=== PATIENT | female | born 1950 | race Caucasian/White ===

== ENCOUNTER 2016-11-14 16:05 | Emergency (ER) | payer BC, MEDICARE ==
[~2016-11-14 16:05] MED LIST: ALEVE220 MG PO; AMB5 PO; APRES10B PO; ASABAYER PO; B COMPLEX-C OR; CARDCD120 PO; CARDCD360 PO; CARDIZEM LA120 MG PO; CARDIZEM LA180 MG PO; CAT1 PO; CYMBALTA30 PO; DUONEB INH; ESTRADIOL1 MG PO; KLOR-CON M2020 MEQ PO; L40 PO; LIOR10 PO; LOP25 PO; LORT7 PO; LORTAB 5 PO; METHOC750B PO; MICARDIS20 MG PO; MULTIVITAMI1 PO; NORCO1 TA2 PO; PR25 PO; PROAIR HFA INH; PROTONIX PO; PROTONIX20 MG PO; RESTORIL30 MG PO; SYN.05 PO; TAZTIA X3 PO; TRIAMCINOLONE454 GM TOP; VENTOLIN HFA INH; VITAMIN C1000 MG PO; VITAMIN D1000 UNI1; VITAMIN D1000 UNI1 PO; ZANTAC 150 PO; ZINC GLUCON50 MG PO
[2016-11-14 16:31] LABS: BASOPHILS 0.4 %; BASOPHILS ABSOLUTE 0.05 10/3/uL (0.0-0.16); EOSINOPHILS 1.5 %; EOSINOPHILS ABSOLUTE 0.19 10/3/uL (0.0-0.53); ER CBC TAT 0 Hrs 07 Mins; HEMATOCRIT 36.3 % (36.0-48.0); HEMOGLOBIN 12.1 g/dL (12.0-16.0); IMMATURE GRANULOCYTES 0.4 %; IMMATURE GRANULOCYTES ABSOLUTE 0.05 10/3/uL (0.0-0.11); LYMPHOCYTES 28.3 %; LYMPHOCYTES ABSOLUTE 3.53 10/3/uL (0.67-4.30); MEAN CORPUS HGB CONC 33.3 g/dL (32.0-36.0); MEAN CORPUSCULAR HEMOGLOB 29.9 pg (26.0-34.0); MEAN CORPUSCULAR VOLUME 89.6 fL (80-100); MONOCYTES 4.8 %; NEUTROPHILS 64.6 %; NEUTROPHILS ABSOLUTE 8.06 10/3/uL (2.02-8.40); PLATELET COUNT 233 10/3/uL (150-400); RBC DISTRIBUTION WIDTH 13.9 % (12.0-16.0); RED CELL COUNT 4.05 10/6/uL (4.0-5.6); WHITE BLOOD CELLS 12.5 10/3/uL (4.5-10.5)
[2016-11-14 16:41] LABS: ASCORBIC ACID (UR NOT ORDER) 40 (NEG); BILIRUBIN, URINE NEGATIVE (NEG); KETONE, URINE NEGATIVE (NEG); LEUKOCYTE ESTERASE(NOT OR TRACE (NEG); NITRITE (URINE) NEG (NEG); WBC (NOT ORDERED) (RFLEX) 7 (0-5)
[2016-11-14 16:45] LABS: ALBUMIN 3.5 G/DL (3.5-5.0); BUN (BLOOD UREA NITROGEN) 15 MG/DL (6-23); CALCIUM, SERUM 8.4 MG/DL (8.5-10.4); CHLORIDE, SERUM 110 MMOL/L (96-112); CO2 (CARBON DIOXIDE) 27 MMOL/L (24-34); CREATININE 1.06 MG/DL (0.55-1.02); GFR AFRICAN AMERICAN 64 ML/MIN (>=60); GFR NON AFRICAN AMERICAN 55 ML/MIN (>=60); GLOBULIN 3.4 G/DL (2.5-4.1); POTASSIUM, SERUM 3.8 MMOL/L (3.5-5.3); SGOT(AST) 35 U/L (5-40); SGPT(ALT) 57 U/L (5-65); SODIUM, SERUM 146 MMOL/L (135-148); TOTAL BILIRUBIN 0.3 MG/DL (0-1.2); TOTAL PROTEIN 6.9 G/DL (6.0-8.5)
[2016-11-14 16:47] LABS: ALKALINE PHOSPHATASE 70 U/L (45-117); GLUCOSE, SERUM 141 MG/DL (60-99)
[2016-11-24] MEDS ORDERED: COZAAR100 MG PO (18:19)
[2016-11-24] MEDS ORDERED: PCET PO (18:22)
[2016-11-24] MEDS ORDERED: ZOFRAN4 PO (18:41)
== END 2016-11-14 21:42 | disposition home or self-care (01) ==
LOC: ER 16:05
PROVIDERS: Emergency Medicine
DX: N20.1 Calculus of ureter (principal); I10 Essential (primary) hypertension; Z87.442 Personal history of urinary calculi; Z88.1 Allergy status to other antibiotic agents; Z79.899 Other long term (current) drug therapy; Z79.82 Long term (current) use of aspirin
CPT/HCPCS: 74176; 80053; 81001; 83690; 85025; 96374; 96375; 99284; J1170; J2405; J2550

== ENCOUNTER 2016-11-18 12:39 | Day surgery (SDC) | payer BC ==
--- NOTE | ~2016-11-18 | OP ---
Record Of Operation [facility] [address] [place]. [address] NAME: ELAINE MAN : 52 STATUS : [facility]#: [id number] AGE: 66 ADM/REG DATE : 11/18/16 MR#: [id number] REPORT SERV DATE: 11/19/16 DICTATED BY: Erna DOWNS DATE: 11/18/16 REPORT STATUS : Draft TRANSCRIBED BY: MODL DATE: 11/18/16 DATE OF PROCEDURE: 11/18/2016 PREOPERATIVE DIAGNOSIS: Right proximal ureteral stone. POSTOPERATIVE DIAGNOSIS: Right proximal ureteral stone. PROCEDURE: Cystoscopy, right retrograde pyelography, ureteral dilation, rigid ureteroscopy, stone manipulation, double-J stent placement. SURGEON: Erna Downs M.D. ANESTHESIA: General endotracheal. COMPLICATIONS: Difficult ureteral access. DRAINS: 7-Guamanian x 22 cm Contour double-J stent. BRIEF HISTORY: Ms. Man is a 66-year-old white female seen by me for the first time in several years today with a history of a 5 mm stone at L4-5 on the right. KUB did not show an obvious stone, and it was noted that she was in pain, and there was a question of infection. She was also having nausea and some vomiting. We decided to proceed with urgent stent placement, possible ureteroscopy, and stone extraction if reasonable. The risks of bleeding, infection, anesthesia, injury to adjacent organs, inability to access stone, and need for stent placement alone, should access proved difficult or retraction obvious, then there were no unanswered questions. DESCRIPTION OF PROCEDURE: Under excellent general anesthesia, the patient was prepped and draped in a standard lithotomy position. Cystoscopy was performed with a 30-degree lens, revealed a normal bladder without tumor, stones, or foreign bodies. An 8-Guamanian cone-tipped catheter was used to perform right retrograde pyelogram and showed obstructing filling defect in the right proximal ureter consistent with stone. Still, I am not sure if this is radiopaque or radiolucent. I inserted an angled glidewire through a 5-Guamanian open-ended catheter, passed the stone without difficulty. I then advance the ureteral catheter, obtained a specimen of urine from the kidney and it was not grossly purulent so, I thought ureteroscopy would be safe. I inserted a short rigid ureteroscope alongside the wire, but could not bypass the distal aspect of the intramural ureter. I then used a 9/11 ureteral access sheath, first dilated the ureter with the inner cannula, but was still unable to pass the scope. I then dilated it with the entire cannula. It was quite tight and still I could not advance the scope above the iliac vessels. There was some blood present, and I felt that in this setting, further manipulation was unwise. I therefore left the collecting system deliberately opacified and recently placed a 7 x 24 cm Contour double-J stent. It appeared too long and it actually got tangled, and was removed inadvertently. So, I opted to place a 7-Guamanian x 22 cm Contour double-J stent which coiled nicely in the renal pelvis and bladder. I plan to discharge Ms. Man as an outpatient with the following instructions. Record Of Operation [facility] [address] [facility] [place]. [address] NAME: ELAINE MAN : 52 STATUS : [facility]#: [id number] AGE: 66 ADM/REG DATE : 11/18/16 MR#: [id number] REPORT SERV DATE: 11/19/16 DICTATED BY: Erna DOWNS DATE: 11/18/16 REPORT STATUS : Draft TRANSCRIBED BY: JOHN DATE: 11/18/16 DISCHARGE INSTRUCTIONS: 1. Home today. 2. Pyridium 200 mg one p.o. t.i.d. p.r.n. bladder pain, #15. 3. Percocet 5/325 one to two p.o. q.4 hours p.r.n. pain, #25. 4. Follow up in my office any day next week with a KUB and we will plan further therapy if high lithotripsy is feasible that would be reasonable if the stone can be seen. Otherwise, we will consider endoscopic management at least 10 days or so down the road, so her ureter has time to dilate. JANNET/JOHN Erna Downs M.D. / [id number] CC: Erna Downs M.D. Helder Gregorio M.D.
[2016-11-18 13:54] LABS: BASOPHILS 0.4 %; BASOPHILS ABSOLUTE 0.04 10/3/uL (0.0-0.16); EOSINOPHILS 0.9 %; EOSINOPHILS ABSOLUTE 0.09 10/3/uL (0.0-0.53); HEMATOCRIT 37.4 % (36.0-48.0); HEMOGLOBIN 12.3 g/dL (12.0-16.0); IMMATURE GRANULOCYTES 0.3 %; IMMATURE GRANULOCYTES ABSOLUTE 0.03 10/3/uL (0.0-0.11); LYMPHOCYTES 26.6 %; LYMPHOCYTES ABSOLUTE 2.64 10/3/uL (0.67-4.30); MANUAL DIFF NO %; MEAN CORPUS HGB CONC 32.9 g/dL (32.0-36.0); MEAN CORPUSCULAR HEMOGLOB 29.5 pg (26.0-34.0); MEAN CORPUSCULAR VOLUME 89.7 fL (80-100); MEAN PLATELET VOLUME 10.4 fL (9.2-13.0); MONOCYTES 5.7 %; MONOCYTES ABSOLUTE 0.56 10/3/uL (0.21-1.20); NEUTROPHILS 66.1 %; NEUTROPHILS ABSOLUTE 6.55 10/3/uL (2.02-8.40); PLATELET COUNT 230 10/3/uL (150-400); RBC DISTRIBUTION WIDTH 13.6 % (12.0-16.0); RED CELL COUNT 4.17 10/6/uL (4.0-5.6); WHITE BLOOD CELLS 9.9 10/3/uL (4.5-10.5)
[2016-11-18 14:04] LABS: BUN (BLOOD UREA NITROGEN) 13 MG/DL (6-23); CALCIUM, SERUM 9.1 MG/DL (8.5-10.4); CHLORIDE, SERUM 105 MMOL/L (96-112); CO2 (CARBON DIOXIDE) 26 MMOL/L (24-34); CREATININE 1.26 MG/DL (0.55-1.02); GFR AFRICAN AMERICAN 52 ML/MIN (>=60); GFR NON AFRICAN AMERICAN 45 ML/MIN (>=60); POTASSIUM, SERUM 4.1 MMOL/L (3.5-5.3); SODIUM, SERUM 141 MMOL/L (135-148)
[2016-11-18 14:05] LABS: GLUCOSE, SERUM 101 MG/DL (60-99)
[2016-11-24] MEDS ORDERED: COZAAR100 MG PO (18:19)
[2016-11-24] MEDS ORDERED: PCET PO (18:22)
[2016-11-24] MEDS ORDERED: ZOFRAN4 PO (18:41)
== END 2016-11-18 20:44 | disposition home or self-care (01) ==
LOC: SDC 12:39
PROC: 0T768DZ Dilation of Right Ureter with Intraluminal Device, Via Natural or Artificial Opening Endoscopic (ICD-10-PCS; 2016-11-18)
PROC: BT1DYZZ Fluoroscopy of Right Kidney, Ureter and Bladder using Other Contrast (ICD-10-PCS; 2016-11-18)
PROC: 0TC68ZZ Extirpation of Matter from Right Ureter, Via Natural or Artificial Opening Endoscopic (ICD-10-PCS; principal; 2016-11-18 14:45)
DX: N20.1 Calculus of ureter (principal); K21.9 Gastro-esophageal reflux disease without esophagitis; K44.9 Diaphragmatic hernia without obstruction or gangrene; J45.909 Unspecified asthma, uncomplicated; Z90.710 Acquired absence of both cervix and uterus; Z79.2 Long term (current) use of antibiotics; Z79.899 Other long term (current) drug therapy; Z90.49 Acquired absence of other specified parts of digestive tract; Z98.890 Other specified postprocedural states; Z82.3 Family history of stroke; Z82.49 Family history of ischemic heart disease and other diseases of the circulatory system; Z88.1 Allergy status to other antibiotic agents
CPT/HCPCS: 74000; 74420; 80048; 85025; 93005; A9270-GY; C1758; C1769; C1894; C2617; J0330; J2250; J2405; J2710; J3010; Q9967

== ENCOUNTER 2016-11-29 11:00 | Day surgery (SDC) | payer BC ==
--- NOTE | ~2016-11-29 | OP ---
Record Of Operation [facility] [address] [place]. [address] NAME: ELAINE MAN : 52 STATUS : [facility]#: [id number] AGE: 66 ADM/REG DATE : 11/29/16 MR#: [id number] REPORT SERV DATE: 11/30/16 DICTATED BY: Erna DOWNS DATE: 11/29/16 REPORT STATUS : Draft TRANSCRIBED BY: MODL DATE: 11/29/16 DATE OF PROCEDURE: 11/29/2016 PREOPERATIVE DIAGNOSIS: History of right proximal ureteral stone with indwelling double-J stent. POSTOPERATIVE DIAGNOSIS: Persistent right mid ureteral narrowing, no evidence of intact stone. PROCEDURES: Cystoscopy, removal of right double-J stent, right ureteroscopy, placement double-J stent. SURGEON: Erna Downs M.D. ANESTHESIA: General. COMPLICATIONS: Persistent difficult ureteral access. DRAINS: 7-Pakistani x 22 cm Contour double-J stent. BRIEF HISTORY: Ms Man is a 66-year-old white female presented the first time last week with a 5-mm right proximal ureteral stone. I attempted ureteroscopy, but was unable to access her proximal ureter. I placed a stent in hopes that it would dilate her ureter and we could proceed with extraction. The risks of bleeding, infection, anesthesia, injury to adjacent organs, need for persistent stenting, treatment etc. were all discussed. There were no unanswered questions. DESCRIPTION OF PROCEDURE: Under excellent general anesthesia, the patient prepped and draped in standard lithotomy position. Cystoscopy was performed with a 30-degree lens, revealed a stent emanating from right orifice. It was removed with a flexible grasper without difficulty. I inserted a 5-Pakistani open-ended catheter into the right orifice and then through that an angled wire was inserted up into the collecting system. Along that a rigid ureteroscope was inserted. There was a dramatic amount of debris in her ureter especially blood and again in the mid ureteral area I had a difficult time accessing the scope. There was some evidence that the wire could be submucosal and there was some evidence of urethral splitting probably from her previous dilation. I removed the scope and inserted alongside the wire. I replaced the wire and then advanced the scope into the proximal ureter. I saw again a dramatic amount of debris, but no stone in fact there were small, crumbled fragments and I assumed the stone might have well been friable and crumbled in her ureter. Lack of dye, I could not see any intact stone even when I was in the collecting system. I dilutely opacified the persistently dilated system, retrofitted wire and the cystoscope placed a 7- Pakistani x 22 cm stent and coiled nicely in the renal pelvis and bladder. I feel like this should be in for a minimum of two weeks, preferably three, and plan to discharge Ms Man an an outpatient with the following instructions. DISCHARGE INSTRUCTIONS: Record Of Operation [facility] [address] [facility] [place]. [address] NAME: ELAINE MAN : 52 STATUS : [facility]#: [id number] AGE: 66 ADM/REG DATE : 11/29/16 MR#: [id number] REPORT SERV DATE: 11/30/16 DICTATED BY: Erna DOWNS DATE: 11/29/16 REPORT STATUS : Draft TRANSCRIBED BY: JOHN DATE: 11/29/16 1. Home today. 2. Percocet 5/325 one to two p.o. q.4 h. p.r.n. pain, #20. 3. Follow up in my office in three weeks or so for cysto stent removal. Followup imaging will depend upon her clinical course. JANNET/JOHN Erna Downs M.D. / [id number] CC: Helder Berry Susan Sumeet Bhushan, M.D.
[~2016-11-29 11:00] MED LIST changes: +COZAAR100 MG PO; +PCET PO; +ZOFRAN4 PO
== END 2016-11-29 18:18 | disposition home or self-care (01) ==
LOC: SDC 11:00
PROC: 0T768DZ Dilation of Right Ureter with Intraluminal Device, Via Natural or Artificial Opening Endoscopic (ICD-10-PCS; principal; 2016-11-29 12:45)
DX: N13.5 Crossing vessel and stricture of ureter without hydronephrosis (principal); K21.9 Gastro-esophageal reflux disease without esophagitis; I12.9 Hypertensive chronic kidney disease with stage 1 through stage 4 chronic kidney disease, or unspecified chronic kidney disease; N18.3 Chronic kidney disease, stage 3 (moderate); M79.7 Fibromyalgia; Z87.442 Personal history of urinary calculi; Z87.891 Personal history of nicotine dependence; Z88.1 Allergy status to other antibiotic agents; Z88.5 Allergy status to narcotic agent; Z90.49 Acquired absence of other specified parts of digestive tract; Z98.890 Other specified postprocedural states
CPT/HCPCS: 74420; A9270-GY; C1758; C1769; C2617; J2250; J2405; J2710; J3010; Q9967

== ENCOUNTER 2016-12-09 19:10 | Inpatient (IN) | payer BC, MEDICARE ==
--- NOTE | ~2016-12-09 | DS ---
Discharge Summary [facility] [address] [place]. [address] NAME: ELAINE MAN : 52 STATUS : DIS IN PAT#: [id number] AGE: 66 ADM/REG DATE : 12/09/16 MR#: [id number] REPORT SERV DATE: 12/30/16 DICTATED BY: Erna DOWNS DATE: 12/29/16 REPORT STATUS : Draft TRANSCRIBED BY: MODL DATE: 12/29/16 ADMISSION DATE: 12/09/2016 DISCHARGE DATE: 12/14/2016 ADMISSION DIAGNOSIS: Left proximal ureteral stone with acute kidney injury. DISCHARGE DIAGNOSIS: Left proximal ureteral stone with acute kidney injury with exacerbation of asthma. PROCEDURES DURING ADMISSION: 12/11/2016, cystoscopy, left retrograde ureteroscopy with double-J stent, cystolitholapaxy, removal of right double-J stent, right retrograde. CONSULTATION: Hospitalist. BRIEF HISTORY: Ms. Man is a 66-year-old white female with a history of a right ureteral stone. Underwent ureteroscopy on 11/29/2016. Presented to the emergency room with a left proximal stone and creatinine increased 1.75. She was admitted for further observation. HOSPITAL COURSE AND TREATMENT: Patient was admitted. She felt okay on 12/10/2016. No stone was seen. We continued to strain her urine, and since she did not progress, her pain was 9/10, we proceeded to the OR for the above procedure. She tolerated that well. Around 12/12/2016 was having some wheezing. She did use an inhaler at home and she was somewhat hypoxemic. Therefore, we asked the hospitalist to see her. She was continued on oxygen as well as antibiotics. She was planned to be discharged on 12/13/2016, but not all of her home had been addressed. On 12/14/2016 she was feeling better. The hospitalist felt she could be discharged with the following instructions. DISCHARGE INSTRUCTIONS: 1. Home today. 2. Follow up in my office next week for cystoscopy and stent removal. 3. 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 JANNET/JOHN Erna Downs M.D. / [id number] CC: Elana Clark M.D.
--- NOTE | ~2016-12-09 | HP ---
History And Physical [facility] [address] [place]. [address] NAME: ELAINE RICHARDSON : 52 STATUS : ADM Jade PAT#: [id number] AGE: 66 ADM/REG DATE : 12/09/16 MR#: [id number] REPORT SERV DATE: 12/10/16 DICTATED BY: Erna GONZALEZ DATE: 12/10/16 REPORT STATUS : Draft TRANSCRIBED BY: MODL DATE: 12/10/16 DATE OF ADMISSION: 12/09/2016 CHIEF COMPLAINT: Left proximal ureteral stone with intractable pain. HISTORY OF PRESENT ILLNESS: Mrs. Richardson is a 66-year-old white female, known to me with a history of recurrent stone disease, seen recently with a right proximal ureteral stone who underwent ureteroscopy on 11/18/2016, and access was difficult due to the narrowness of her right ureter. I attempted it again on 11/29/2016, but was again unsuccessful. It is my feeling that I was going to leave her stent in for several weeks and simply remove her stent since no residual stone had been seen. I was able to access her entire ureter the second time, again saw no stone. She came in today with intractable left flank pain and was found to have a 3 mm proximal stone. Her pain needed parental narcotics and her creatinine was elevated to 1.7, so it was decided to admit her. PAST MEDICAL HISTORY: Hypertension, dysrhythmias, urolithiasis, asthma, sleep apnea, degenerative disc disease, fibromyalgia, osteoporosis, and diverticulitis. PAST SURGICAL HISTORY: Hysterectomy, colon resection, fistula repair, cholecystectomy, appendectomy, pilonidal cyst removal, hemorrhoidectomy, cataract extraction, and cysto stent 11/18/2016 and 11/29/2016 with ureteroscopy. HOME MEDICATIONS: Cholecalciferol; diltiazem; fluticasone; losartan; methocarbamol; ondansetron; oxycodone; pantoprazole; phenazopyridine; ranitidine; and tramadol. ALLERGIES: ERYTHROMYCIN CAUSES HIVES. MORPHINE CAUSES HALLUCINATIONS. SOCIAL HISTORY: The patient lives at home with her family. FAMILY HISTORY: Negative for urologic disease. REVIEW OF SYSTEMS: Complete 12-point review of systems is negative except as noted above. She specifically denies fever, chills, nausea, and vomiting. PHYSICAL EXAMINATION: GENERAL: Uncomfortable 66-year-old white female. Afebrile, conversant, interactive. GENERAL: She is ambulatory. HEENT: Normocephalic, atraumatic, afebrile with normal vital signs. LUNGS: No respiratory distress. HEART: Regular rate and rhythm. ABDOMEN: Protuberant, nontender, and nondistended. No CVA tenderness. EXTREMITIES: No peripheral edema noted. PERTINENT LABORATORY: Creatinine 1.75. White count 8500. Urinalysis positive for red cells, otherwise unremarkable except for 16 white cells. History And Physical [address] [address] NAME: ELAINE RICHARDSON : 52 STATUS : ADM Jade PAT#: [id number] AGE: 66 ADM/REG DATE : 12/09/16 MR#: [id number] REPORT SERV DATE: 12/10/16 DICTATED BY: Erna GONZALEZ DATE: 12/10/16 REPORT STATUS : Draft TRANSCRIBED BY: JOHN DATE: 12/10/16 IMPRESSION: 1. Left proximal ureteral stone with intractable pain. 2. No signs of infection except for inflammatory urine. We will check a urine culture. PLAN: 1. We will check a KUB. I doubt this stone to be radiopaque. 2. We will let her eat today and strain her urine. If she is unable to pass the stone, I will consider endoscopic intervention on 12/11/2016. JANNET/JOHN Erna Gonzalez M.D. / [id number] CC: Erna Gonzalez M.D.
--- NOTE | ~2016-12-09 | OP ---
Record Of Operation [facility] [address] [place]. [address] NAME: ELAINE MAN : 52 STATUS : ADM Jade PAT#: [id number] AGE: 66 ADM/REG DATE : 12/09/16 MR#: [id number] REPORT SERV DATE: 12/12/16 DICTATED BY: Erna DOWNS DATE: 12/11/16 REPORT STATUS : Draft TRANSCRIBED BY: MODL DATE: 12/11/16 DATE OF PROCEDURE: 12/11/2016 PREOPERATIVE DIAGNOSIS: Left proximal ureteral stone with intractable pain. POSTOPERATIVE DIAGNOSIS: Left proximal ureteral stone with intractable pain. PROCEDURE: Cystoscopy, left retrograde pyelography, ureteroscopy with stone manipulation, double-J stent placement, cystolitholapaxy, removal of right double-J stent, right retrograde pyelogram. SURGEON: Erna Downs M.D. ANESTHESIA: General endotracheal. COMPLICATIONS: None. DRAINS: Left 7-Occitan x 24 cm Contour double-J stent. BRIEF HISTORY: Ms. Man is a 66-year-old white female, well known to me with a history of recurrent stone disease, who underwent a ureteroscopy on the right side recently for the stone. She had a narrow ureter and had to have a repeat ureteroscopy with stent placement which was scheduled to come out in about a week. She presented on 12/09/2016, with a small left proximal ureteral stone and was admitted for pain control. She failed to progress and we decided to proceed with intervention today. The risks of bleeding, infection, anesthesia, injury to adjacent organs, inability to access stone, and need for an additional stent on the left side were all discussed. We also discussed that if all went well on the left, we would consider removing her stent or at least exchanging it with retrograde pyelography if appropriate. There were no unanswered questions. DESCRIPTION OF PROCEDURE: Under excellent general anesthesia, the patient was prepped and draped in standard lithotomy position. Cystoscopy was performed with a 30-degree lens, revealed a stent emanating from the right orifice. It was severely encrusted especially given the fact that it had been in only for two weeks. I was able to find the left orifice and performed a left retrograde pyelogram, which showed evidence of filling defect near the proximal ureter. I inserted an angled glidewire through a 5-Occitan open-ended catheter, then along side the wire inserted a short rigid ureteroscope. There was narrowing just at the level of the UPJ, but I was able to advance the scope into the renal pelvis. I saw some tiny fragments, but no significant stone. I did attempt to retrieve these with a basket, but was unsuccessful as they were too small. I left the collecting system deliberately opacified and placed a retrofitted the wire in the cystoscope, and placed a 7-Occitan x 24 cm Contour double-J stent which coiled nicely in the renal pelvis and bladder. I then planned to at least remove the right stent that was severely encrusted and so I had to break the stone off with a grasper and remove those fragments. I remove that stent and had an 8- Occitan cone-tipped catheter was used to perform a right retrograde pyelogram. It showed no filling defect or extravasation, there was a dilated collecting system, probably due to the Record Of Operation [address] [address] NAME: ELAINE MAN : 52 STATUS : ADM Jade PAT#: [id number] AGE: 66 ADM/REG DATE : 12/09/16 MR#: [id number] REPORT SERV DATE: 12/12/16 DICTATED BY: Erna DOWNS DATE: 12/11/16 REPORT STATUS : Draft TRANSCRIBED BY: JOHN DATE: 12/11/16 stent encrustation. I was able to advance the ureteral catheter all the way into the collecting system without trouble and I felt that leaving a stent on that side was unnecessary. I plan to discharge Ms. Man from the hospital today with the following instructions. DISCHARGE INSTRUCTIONS: 1. Home today. 2. Plan cysto, left stent removal in the office in 7 to 10 days. 3. Percocet 5/325 one to two p.o. q.4 hours p.r.n. pain, #20. GIGID/CHARISSAL Erna Downs M.D. / [id number] CC: Erna Downs M.D.
--- NOTE | ~2016-12-09 | HP ---
History And Physical [facility] [place]. [address] NAME: ELAINE MAN : 52 STATUS : ADM Jade PAT#: [id number] AGE: 66 ADM/REG DATE : 12/09/16 MR#: [id number] REPORT SERV DATE: 12/12/16 DICTATED BY: REG LICONA DATE: 12/12/16 REPORT STATUS : Draft TRANSCRIBED BY: MODL DATE: 12/12/16 DATE OF ADMISSION: 12/09/2016 H and P consultation. REASON FOR CONSULTATION: Wheezing and shortness of breath. HISTORY OF PRESENT ILLNESS: This is a very pleasant 66-year-old white female, who reports that in 09/2016, she started passing blood in her urine and had a stone pass at that time. She continued to have hematuria in October and November of this year and was actually seen by Dr. Gonzalez after an ER visit here where a right double-J stent was placed. She went home, was supposed to have followup with Dr. Gonzalez for removal of that double-J stent, but returned to the emergency room on 12/09/2016 with more pain and continued hematuria. She had a left renal stone and is now status post a double-J stent to the left ureter. She has recovered from that, but has had some difficulty with wheezing. Has had a fever up to 100.8. Has had some dyspnea with exertion and has been hypoxic particularly with ambulating. Yesterday evening, she describes a sensation of chest pain particularly with deep breathing and coughing, but that has passed today, but is still continuing to wheeze. Hospitalist Service has been consulted for this respiratory distress, wheezing, fever, and hypoxemia. PAST MEDICAL HISTORY: Includes supraventricular tachycardia; hypertension; obstructive sleep apnea, on current CPAP therapy nightly; fibromyalgia; osteoarthritis; bradycardia; fatty liver; colon polyps; sepsis; and the patient has been on [employer] during a lengthy hospital admission in 2007. SURGICAL HISTORY: Includes a right colectomy in 2007 with ileostomy that has been reversed, hysterectomy, oophorectomy, bladder tack, pilonidal cyst removal, and hemorrhoidectomy. FAMILY HISTORY: Mother with TIA, CVA, and blood clots. Father with coronary artery disease, [place], hypertension, and diabetes. ALLERGIES: SHE STATES SHE HAS ALLERGY TO ERYTHROMYCIN AND MORPHINE. SOCIAL HISTORY: Denies any alcohol, tobacco, or illicit drug use. She works at the [employer] in [place]. GI DOCTOR: Dr. Clark. REVIEW OF SYSTEMS: Negative except for pertinents mentioned in the above HPI. PHYSICAL EXAMINATION: VITAL SIGNS: Has a temperature of 100.8, pulse rate of 88 sinus, respiratory rate of 22, blood pressure 162/68. GENERAL: She is alert and oriented x3 with no focal deficits. Cooperative and awake for exam, but is noticeably short of breath and mildly tachypneic. History And Physical [address] [address] NAME: ELAINE MAN : 52 STATUS : ADM Jade PAT#: [id number] AGE: 66 ADM/REG DATE : 12/09/16 MR#: [id number] REPORT SERV DATE: 12/12/16 DICTATED BY: REG LICONA DATE: 12/12/16 REPORT STATUS : Draft TRANSCRIBED BY: JOHN DATE: 12/12/16 NECK: No appreciable lymphadenopathy is noted. No JVD. LUNGS: On auscultation bilaterally. She has expiratory wheeze and is tachypneic as stated. HEART: No rubs or gallops are auscultated on the chest wall, but she does have a 2 to 3 out of 6 systolic murmur and she is sinus rhythm. Heart rate in the 80s. ABDOMEN: Soft, nontender, obese. EXTREMITIES: No edema. Normal distal pulses. HEENT: PERRLA is noted. Sclerae are clear. SKIN: Otherwise, skin is warm and dry. LABORATORY DATA AND IMAGING: Other testing during this admission include a CT of the abdomen and pelvis upon admission that showed mild left hydronephrosis and renal stone. Last lab work on 12/11/2016 showed a sodium of 147, K of 3.9, BUN of 18, creatinine of 1.28. White blood cells 6.3, hemoglobin 10.5, hematocrit 32.4. ASSESSMENT: 1. Wheeze, asthma exacerbation, and productive cough. 2. Fever. 3. Hypertension. 4. Hypoxemia. 5. Obstructive sleep apnea, on CPAP therapy. 6. Acute kidney injury. 7. Left proximal ureteral stone, status post cystoscopy and double-J stent on 12/11/2016. 8. History of paroxysmal supraventricular tachycardia. PLAN: We will obtain a chest x-ray. We will obtain a procalcitonin level. We will start the patient on DuoNeb therapy and Solu-Medrol with transition to prednisone. We will obtain a sputum culture, urinalysis, CBC, and BMP. At this time, we will humidify her O2 and wean as tolerated. I have instructed her to obtain her CPAP and use here if it is available and we will utilize p.r.n. antihypertensives for systolic blood pressure greater than 170 for now. We appreciate the ability to consult on this patient. We will follow along with you. CSC/MODL Reg Licona NP / [id number] CC: Helder Berry M.D.
[2016-12-09 18:39] LABS: WBC (NOT ORDERED) (RFLEX) 0 (0-5)
[2016-12-09 18:51] LABS: ASCORBIC ACID (UR NOT ORDER) 40 (NEG); BILIRUBIN, URINE NEGATIVE (NEG); ER URINALYSIS TAT 0 Hrs 14 Mins; KETONE, URINE NEGATIVE (NEG); LEUKOCYTE ESTERASE(NOT OR TRACE (NEG); NITRITE (URINE) NEG (NEG)
[2016-12-09 19:14] LABS: BASOPHILS 0.5 %; BASOPHILS ABSOLUTE 0.04 10/3/uL (0.0-0.16); EOSINOPHILS 1.5 %; EOSINOPHILS ABSOLUTE 0.12 10/3/uL (0.0-0.53); ER CBC TAT 0 Hrs 11 Mins; HEMOGLOBIN 11.1 g/dL (12.0-16.0); IMMATURE GRANULOCYTES 0.5 %; IMMATURE GRANULOCYTES ABSOLUTE 0.04 10/3/uL (0.0-0.11); LYMPHOCYTES 15.4 %; MANUAL DIFF NO %; MEAN CORPUS HGB CONC 33.6 g/dL (32.0-36.0); MEAN CORPUSCULAR HEMOGLOB 29.9 pg (26.0-34.0); MEAN CORPUSCULAR VOLUME 88.9 fL (80-100); MEAN PLATELET VOLUME 10.3 fL (9.2-13.0); MONOCYTES 8.1 %; MONOCYTES ABSOLUTE 0.63 10/3/uL (0.21-1.20); NEUTROPHILS ABSOLUTE 5.76 10/3/uL (2.02-8.40); PLATELET COUNT 182 10/3/uL (150-400); RED CELL COUNT 3.71 10/6/uL (4.0-5.6); WHITE BLOOD CELLS 7.8 10/3/uL (4.5-10.5)
[2016-12-09 19:29] LABS: A/G RATIO 0.9 (0.7-1.9); ALBUMIN 3.3 G/DL (3.5-5.0); CALCIUM, SERUM 8.3 MG/DL (8.5-10.4); CHLORIDE, SERUM 108 MMOL/L (96-112); CO2 (CARBON DIOXIDE) 25 MMOL/L (24-34); CREATININE 1.75 MG/DL (0.55-1.02); GFR AFRICAN AMERICAN 35 ML/MIN (>=60); GFR NON AFRICAN AMERICAN 30 ML/MIN (>=60); GLOBULIN 3.5 G/DL (2.5-4.1); POTASSIUM, SERUM 4.1 MMOL/L (3.5-5.3); SGOT(AST) 115 U/L (5-40); SGPT(ALT) 79 U/L (5-65); SODIUM, SERUM 141 MMOL/L (135-148); TOTAL PROTEIN 6.8 G/DL (6.0-8.5)
[2016-12-09 19:30] LABS: ALKALINE PHOSPHATASE 86 U/L (45-117); BUN (BLOOD UREA NITROGEN) 17 MG/DL (6-23); GLUCOSE, SERUM 137 MG/DL (60-99)
[2016-12-09] MEDS ORDERED: ZOFRAN8 PO (21:43)
[2016-12-09] MEDS ORDERED: FLONASE NAS (21:44)
[2016-12-09] MEDS ORDERED: ZANTAC 150 PO (21:48)
[2016-12-09] MEDS ORDERED: ULTRAM50 PO (21:49)
[2016-12-09] MEDS ORDERED: PYR200 PO (21:49)
[2016-12-09] MEDS ORDERED: PROTONIX PO (21:51)
[2016-12-10 04:09] LABS: BASOPHILS 0.5 %; BASOPHILS ABSOLUTE 0.04 10/3/uL (0.0-0.16); EOSINOPHILS 0.7 %; EOSINOPHILS ABSOLUTE 0.06 10/3/uL (0.0-0.53); HEMATOCRIT 34.9 % (36.0-48.0); HEMOGLOBIN 11.4 g/dL (12.0-16.0); IMMATURE GRANULOCYTES 0.6 %; IMMATURE GRANULOCYTES ABSOLUTE 0.05 10/3/uL (0.0-0.11); LYMPHOCYTES 18.5 %; LYMPHOCYTES ABSOLUTE 1.57 10/3/uL (0.67-4.30); MANUAL DIFF NO %; MEAN CORPUS HGB CONC 32.7 g/dL (32.0-36.0); MEAN CORPUSCULAR HEMOGLOB 29.3 pg (26.0-34.0); MEAN CORPUSCULAR VOLUME 89.7 fL (80-100); MEAN PLATELET VOLUME 10.4 fL (9.2-13.0); MONOCYTES 5.5 %; MONOCYTES ABSOLUTE 0.47 10/3/uL (0.21-1.20); NEUTROPHILS 74.2 %; PLATELET COUNT 200 10/3/uL (150-400); RBC DISTRIBUTION WIDTH 13.8 % (12.0-16.0); RED CELL COUNT 3.89 10/6/uL (4.0-5.6); WHITE BLOOD CELLS 8.5 10/3/uL (4.5-10.5)
[2016-12-10 04:20] LABS: BUN (BLOOD UREA NITROGEN) 17 MG/DL (6-23); CALCIUM, SERUM 8.1 MG/DL (8.5-10.4); CHLORIDE, SERUM 111 MMOL/L (96-112); CO2 (CARBON DIOXIDE) 25 MMOL/L (24-34); GFR AFRICAN AMERICAN 36 ML/MIN (>=60); GFR NON AFRICAN AMERICAN 31 ML/MIN (>=60); POTASSIUM, SERUM 4.3 MMOL/L (3.5-5.3); SODIUM, SERUM 144 MMOL/L (135-148)
[2016-12-10 04:22] LABS: GLUCOSE, SERUM 108 MG/DL (60-99)
[2016-12-10 12:42] LABS: BUN (BLOOD UREA NITROGEN) 16 MG/DL (6-23); CALCIUM, SERUM 8.6 MG/DL (8.5-10.4); CHLORIDE, SERUM 108 MMOL/L (96-112); CO2 (CARBON DIOXIDE) 30 MMOL/L (24-34); CREATININE 1.51 MG/DL (0.55-1.02); GFR AFRICAN AMERICAN 42 ML/MIN (>=60); GFR NON AFRICAN AMERICAN 36 ML/MIN (>=60); GLUCOSE, SERUM 97 MG/DL (60-99); POTASSIUM, SERUM 3.6 MMOL/L (3.5-5.3); SODIUM, SERUM 143 MMOL/L (135-148)
[2016-12-11 04:33] LABS: BASOPHILS 0.6 %; BASOPHILS ABSOLUTE 0.04 10/3/uL (0.0-0.16); EOSINOPHILS 1.9 %; EOSINOPHILS ABSOLUTE 0.12 10/3/uL (0.0-0.53); HEMATOCRIT 32.4 % (36.0-48.0); HEMOGLOBIN 10.5 g/dL (12.0-16.0); IMMATURE GRANULOCYTES 0.3 %; IMMATURE GRANULOCYTES ABSOLUTE 0.02 10/3/uL (0.0-0.11); LYMPHOCYTES 31.3 %; LYMPHOCYTES ABSOLUTE 1.98 10/3/uL (0.67-4.30); MEAN CORPUS HGB CONC 32.4 g/dL (32.0-36.0); MEAN CORPUSCULAR HEMOGLOB 29.5 pg (26.0-34.0); MEAN PLATELET VOLUME 10.3 fL (9.2-13.0); MONOCYTES 9.5 %; NEUTROPHILS 56.4 %; NEUTROPHILS ABSOLUTE 3.57 10/3/uL (2.02-8.40); PLATELET COUNT 161 10/3/uL (150-400); RBC DISTRIBUTION WIDTH 14.5 % (12.0-16.0); RED CELL COUNT 3.56 10/6/uL (4.0-5.6); WHITE BLOOD CELLS 6.3 10/3/uL (4.5-10.5)
[2016-12-11 04:34] LABS: MANUAL DIFF NO %
[2016-12-11 04:49] LABS: BUN (BLOOD UREA NITROGEN) 18 MG/DL (6-23); CALCIUM, SERUM 8.4 MG/DL (8.5-10.4); CHLORIDE, SERUM 113 MMOL/L (96-112); CO2 (CARBON DIOXIDE) 28 MMOL/L (24-34); CREATININE 1.28 MG/DL (0.55-1.02); GFR AFRICAN AMERICAN 51 ML/MIN (>=60); GFR NON AFRICAN AMERICAN 44 ML/MIN (>=60); GLUCOSE, SERUM 109 MG/DL (60-99); POTASSIUM, SERUM 3.9 MMOL/L (3.5-5.3); SODIUM, SERUM 147 MMOL/L (135-148)
[2016-12-12 22:45] LABS: ASCORBIC ACID (UR NOT ORDER) NEG (NEG); BILIRUBIN, URINE NEGATIVE (NEG); KETONE, URINE NEGATIVE (NEG); LEUKOCYTE ESTERASE(NOT OR NEG (NEG); WBC (NOT ORDERED) (RFLEX) 6 (0-5)
[2016-12-13 05:27] LABS: BASOPHILS 0.2 %; BASOPHILS ABSOLUTE 0.01 10/3/uL (0.0-0.16); EOSINOPHILS 0.2 %; EOSINOPHILS ABSOLUTE 0.01 10/3/uL (0.0-0.53); HEMATOCRIT 33.4 % (36.0-48.0); HEMOGLOBIN 10.9 g/dL (12.0-16.0); IMMATURE GRANULOCYTES 0.3 %; IMMATURE GRANULOCYTES ABSOLUTE 0.02 10/3/uL (0.0-0.11); LYMPHOCYTES 12.4 %; LYMPHOCYTES ABSOLUTE 0.78 10/3/uL (0.67-4.30); MEAN CORPUS HGB CONC 32.6 g/dL (32.0-36.0); MEAN CORPUSCULAR HEMOGLOB 29.5 pg (26.0-34.0); MEAN CORPUSCULAR VOLUME 90.5 fL (80-100); MEAN PLATELET VOLUME 10.2 fL (9.2-13.0); MONOCYTES 0.8 %; MONOCYTES ABSOLUTE 0.05 10/3/uL (0.21-1.20); NEUTROPHILS 86.1 %; NEUTROPHILS ABSOLUTE 5.43 10/3/uL (2.02-8.40); PLATELET COUNT 170 10/3/uL (150-400); RED CELL COUNT 3.69 10/6/uL (4.0-5.6); WHITE BLOOD CELLS 6.3 10/3/uL (4.5-10.5)
[2016-12-13 05:28] LABS: MANUAL DIFF NO %
[2016-12-13 05:35] LABS: BUN (BLOOD UREA NITROGEN) 15 MG/DL (6-23); CALCIUM, SERUM 8.7 MG/DL (8.5-10.4); CHLORIDE, SERUM 107 MMOL/L (96-112); CO2 (CARBON DIOXIDE) 27 MMOL/L (24-34); CREATININE 1.21 MG/DL (0.55-1.02); GFR AFRICAN AMERICAN 54 ML/MIN (>=60); GFR NON AFRICAN AMERICAN 47 ML/MIN (>=60); GLUCOSE, SERUM 183 MG/DL (60-99); POTASSIUM, SERUM 3.7 MMOL/L (3.5-5.3); SODIUM, SERUM 144 MMOL/L (135-148)
[2016-12-14] MEDS ORDERED: P20 PO (11:59)
[2016-12-14] MEDS ORDERED: ATROVENTUD INH (12:02)
[2016-12-14] MEDS ORDERED: DULERA 100 MCG/13 GM INH (12:03)
[2016-12-14] MEDS ORDERED: MELA3 PO (12:15)
== END 2016-12-14 12:49 | disposition home or self-care (01) | DRG 683 ==
LOC: ER 19:10 → CDU1 20:49 → CDU2 21:39 → SDC/OF 12-11 10:41 → CDU2 12-11 13:13
PROVIDERS: Internal Medicine Nephrology; Nurse Practitioner Family
PROC: BT141ZZ Fluoroscopy of Kidneys, Ureters and Bladder using Low Osmolar Contrast (ICD-10-PCS; 2016-12-11)
PROC: 0T778DZ Dilation of Left Ureter with Intraluminal Device, Via Natural or Artificial Opening Endoscopic (ICD-10-PCS; principal; 2016-12-11 10:45)
PROC: 0TP98DZ Removal of Intraluminal Device from Ureter, Via Natural or Artificial Opening Endoscopic (ICD-10-PCS; 2016-12-11 10:45)
DX: N17.9 Acute kidney failure, unspecified (principal); J45.901 Unspecified asthma with (acute) exacerbation; Z68.41 Body mass index [BMI] 40.0-44.9, adult; I47.1 Supraventricular tachycardia; K76.0 Fatty (change of) liver, not elsewhere classified; N20.1 Calculus of ureter; R09.02 Hypoxemia; M79.7 Fibromyalgia; G47.33 Obstructive sleep apnea (adult) (pediatric); I10 Essential (primary) hypertension; E66.9 Obesity, unspecified; Z90.49 Acquired absence of other specified parts of digestive tract; Z88.1 Allergy status to other antibiotic agents; Z87.440 Personal history of urinary (tract) infections; Z83.3 Family history of diabetes mellitus; Z90.710 Acquired absence of both cervix and uterus; Z82.3 Family history of stroke
CPT/HCPCS: 71020; 74000; 74176; 74420; 80048; 80053; 81001; 83690; 84145; 85025; 87070; 87086; 87205; 94640; 96374; 96376; 99285; A9270-GY; C1758; C1769; C1874; J1170; J2405; J2710; J2920; J3010; Q9967